=== PATIENT | female | born 1985 | race Caucasian/White ===

== ENCOUNTER 2016-11-21 09:20 | Emergency (ER) | payer OTHER | END 2016-11-21 11:22 | disposition home or self-care (01) | LOC: ER 09:20 | DX: R07.9 Chest pain, unspecified (principal); F41.9 Anxiety disorder, unspecified; F15.10 Other stimulant abuse, uncomplicated; R00.2 Palpitations; R05 Cough; K21.9 Gastro-esophageal reflux disease without esophagitis; I10 Essential (primary) hypertension; Z79.899 Other long term (current) drug therapy; Z87.891 Personal history of nicotine dependence | CPT/HCPCS: 36415; 80307; 87502; 96360 ==

== ENCOUNTER → 2016-11-21 17:21 | Emergency (ER) | payer OTHER | END | disposition left against medical advice (07) | LOC: ER 17:21 | DX: Z53.21 Procedure and treatment not carried out due to patient leaving prior to being seen by health care provider (principal) ==